=== PATIENT | male | born 1980 | race Hispanic/Latino ===

== ENCOUNTER 2021-12-17 08:33 | Emergency (ER) | payer OTHER ==
[~2021-12-17] VITALS: Ht 170.2 cm; Wt 113.4 kg
[2021-12-17 09:12] VITALS: BP 142/101
== END 2021-12-17 10:39 | disposition home or self-care (01) ==
LOC: EDH 08:33
DX: S92.512A Displaced fracture of proximal phalanx of left lesser toe(s), initial encounter for closed fracture (principal); S93.105A Unspecified dislocation of left toe(s), initial encounter; W01.0XXA Fall on same level from slipping, tripping and stumbling without subsequent striking against object, initial encounter; Y93.89 Activity, other specified; Y92.89 Other specified places as the place of occurrence of the external cause; Y99.8 Other external cause status
CPT/HCPCS: 28515; 73620; 73630